=== PATIENT | male | born 1960 | race Caucasian/White ===

== ENCOUNTER 2024-11-12 01:33 | Emergency (ER) | payer OTHER ==
[~2024-11-12] VITALS: Ht 177.8 cm; Wt 92.0 kg
[2024-11-12 01:41] VITALS: O2SAT 96
[2024-11-12 01:45] VITALS: BP 147/98; PULSE 97; RESP 16; TEMP 36.8; O2SAT 97
[2024-11-12] MEDS: LIDOCAINE HCL 1% 20ML VIAL INFIL ONE (03:24)
[2024-11-12] MEDS: ACETAMINOPHEN 325MG TABLET PO ONE (03:50)
== END 2024-11-12 04:05 | disposition home or self-care (01) ==
LOC: ER 01:33
DX: S61.214A Laceration without foreign body of right ring finger without damage to nail, initial encounter (principal); X58.XXXA Exposure to other specified factors, initial encounter; Y93.89 Activity, other specified; Y92.89 Other specified places as the place of occurrence of the external cause; Y99.8 Other external cause status
CPT/HCPCS: 99282; 12001; J2003